=== PATIENT | female | born 1995 | race African-American/Black ===

== ENCOUNTER 2016-03-09 20:44 | Emergency (ER) | payer OTHER, SELFPAY ==
[2016-03-09] MEDS ORDERED: Dexamethasone 4 MG TAB ONE (20:56)
--- NOTE | 2016-03-09 21:21 | ERRECORD ---
[facility] EMERGENCY RECORD HPI SORE THROAT (20:55 BPIC) CHIEF COMPLAINT: Patient presents for evaluation of sore throat, Patient presents for evaluation of cough and body aches. HISTORIAN: History provided by patient. LOCATION: No localizing symptoms. QUALITY: Pain is sharp in nature. SEVERITY: Maximum severity of symptoms moderate, Currently symptoms are moderate. TIME COURSE: Gradual onset of symptoms, Symptoms are worsening. ASSOCIATED WITH: Associated with fever, No associated drooling, No associated dysphagia, No associated headache, No associated inability to take oral fluids. EXACERBATED BY: Patient's condition exacerbated by food. RELIEVED BY: Patient's condition relieved by cold fluids. ROS (20:55 BPIC) CONSTITUTIONAL: Negative constitutional review of systems. EYES: Negative eye review of systems. ENT: see hpi. CARDIOVASCULAR: Negative cardiovascular review of systems. RESPIRATORY: Negative respiratory review of systems. GI: Negative gastrointestinal review of systems. MUSCULOSKELETAL: Negative musculoskeletal review of systems. SKIN: Negative skin review of systems. PSYCHIATRIC: Negative psychiatric review of systems. NOTES: All other ROS is negative except as listed in HPI. PAST MEDICAL HISTORY MEDICAL HISTORY: Flu vaccine not up to date, Tetanus immunization up to date, Pneumococcal vaccine not up to date, Past medical history includes pulmonary disease, asthma, Past medical history includes pulmonary disease, asthma. HEART MURMUR. (20:55 SFRE) FEMALE SURGICAL HISTORY: Patient's surgical history is not relevant to the management of the case, Surgical history of tonsillectomy, Notes: 10 years ago, ADENOIDECTOMY. (20:55 SFRE) PSYCHIATRIC HISTORY: Psychiatric history includes, depression. (20:55 SFRE) SOCIAL HISTORY: Patient denies alcohol use, Patient denies drug use, Patient has no smoking history, Lives at home, with family. (20:55 SFRE) FAMILY HISTORY: Family istory is not significant, Unknown family histroy, Family history is non-contributory to this case. (20:55 SFRE) NOTES: I have reviewed and agree with the PMH/PSxH/FamHx/SocHx obtained by the nurse. (20:55 BPIC) KNOWN ALLERGIES "motrin dye" &a-1R&a+25V*p+0X*d6369L*c202B*c15G*c2P*p-0X&a-25V&a+1R Name: Kam Crowder : 1995 F20 MedRec: [id number] AcctNum: [id number] Prepared: MonMar 09, 2016 22:15 by Interface Page [address] [facility] EMERGENCY RECORD Red Dye (Unconfirmed): Reaction: Hives, Severity: Mild, Source: Patient CURRENT MEDICATIONS (20:53 SFRE) FLUoxetine: TABLET : Strength - 20 mg : ORAL Patient Dose: 20 mg Oral once a day. VITAL SIGNS (20:52 SFRE) VITAL SIGNS: BP: 114/39, Pulse: 70, Resp: 18, Temp: 98.1 (Tympanic), Pain: 10 (Dull), O2 sat: 99 on Room Air, Time: 03/09/2016 20:52. PHYSICAL EXAM (20:55 BPIC) CONSTITUTIONAL: Vital signs reviewed, Patient afebrile, Pulse normal, Blood pressure normal, Respiratory rate normal, Patient appears non toxic, Patient appears pain free, Patient alert and oriented to person, place and time. HEAD: Head exam included findings of head atraumatic, normocephalic. EYES: Eye exam included findings of eyelids normal to inspection, Pupils equally round and reactive to light, Extraocular muscles intact. ENT: mild pharyngeal erythema. NECK: Neck exam included findings of normal range of motion, Trachea midline. RESPIRATORY CHEST: Respiratory exam included findings of no respiratory distress, Breath sounds clear. CARDIOVASCULAR: Cardiovascular exam included findings of heart rate regular rate and rhythm, Heart sounds normal. NEURO: Neuro exam findings include patient oriented to person, place and time, Speech normal. PSYCHIATRIC: Psychiatric exam included findings of patient oriented to person place and time, Normal affect. MEDICATION ADMINISTRATION SUMMARY Drug Name: Decadron oral, Dose Ordered: 8 mg, Route: Oral, Status: Given, Time: 20:59 03/09/2016, Detailed record available in Medication Service section. DOCTOR NOTES (20:55 BPIC) NOTES: Patient with sorethroat and fever by history. Non-toxic appearing. DDX considered includes ashleigh-tonsillar abscess, retro-pharyngeal abscess, dental infection, merlyn's, strep throat, mono, thyroiditis. Exam is re-assuring. Will d/c to outpatient follow up with symptomatic treatment. PROBLEM LIST No recorded problems &a-1R&a+25V*p+0X*q7306N*c202B*c15G*c2P*p-0X&a-25V&a+1R Name: Kam Crowder : 1995 F20 MedRec: [id number] AcctNum: [id number] Prepared: MonMar 09, 2016 22:15 by Interface Page [address] [facility] EMERGENCY RECORD DIAGNOSIS FINAL: PRIMARY: Strep throat. (20:55 BPIC) PRIMARY: viral pharyngitis. (20:56 BPIC) PRESCRIPTION No recorded prescriptions DISPOSITION PATIENT: Disposition Type: Discharge, Disposition: *Discharge Home, Condition: Good. (20:56 BPIC) Patient left the department. (21:07 SFRE) Rdz: BPIC=MD Nissa, Prem SFRE=KIRAN Espinoza, Elaine &a-1R&a+25V*p+0X*[id number]*c202B*c15G*c2P*p-0X&a-25V&a+1R Name: Kam Crowder : 1995 F20 MedRec: [id number] AcctNum: [id number] Prepared: MonMar 09, 2016 22:15 by Interface Page 3 of 3 pMD MTDD
--- NOTE | 2016-03-09 21:25 | PICIS ---
[facility] EMERGENCY RECORD TRIAGE (MonMar 09, 2016 20:53 SFRE) TRIAGE NOTES: SORE THROAT AND BODY ACHES. (MonMar 09, 2016 20:53 SFRE) PATIENT: NAME: Kam Crowder, AGE: 20, GENDER: female, : Mon1995, TIME OF GREET: MonMar 09, 2016 20:44, PREFERRED LANGUAGE: German, ETHNICITY: Not or , FALL RISK: NO, ECODE BILLING MAP: [facility], SSN: [id number], Zip Code: [address], KG WEIGHT: 64.41, PHONE: , , , PERSON ID: [id number], PCP: MD Lloyd Olayemi. (MonMar 09, 2016 20:53 SFRE) COMPLAINT: BODY ACHES, SORE THROAT. (MonMar 09, 2016 20:53 SFRE) ADMISSION: URGENCY: 5 Fast Track, ADMISSION SOURCE: Home, TRANSPORT: Walk-in, BED: ED -04. (MonMar 09, 2016 20:53 SFRE) ASSESSMENT: Symptoms began 03/09/2016. (20:55 SFRE) PAIN: Patient complains of pain described as, dull, on a scale 0-10 patient rates pain as 10, Location GENERALIZED BODY ACHES, Pain is constant, No aggravating factors, No efforts tried to relieve symptoms. (20:55 SFRE) IMMUNIZATIONS: Flu vaccine not up to date. (20:55 SFRE) SIRS SCORING: Heart Rate 55-109 (0), Temp range 96.8-101.1 (0), respiratory rate 12-24 (0), Mental Status altered: no (0). (20:55 SFRE) TRIAGE SCREENING: Patient denies suicidal ideation, Patient denies presence of domestic violence. (20:55 SFRE) PROVIDERS: TRIAGE NURSE: Elaine Espinoza RN. (MonMar 09, 2016 20:53 SFRE) VITAL SIGNS: BP 114/39, Pulse 70, Resp 18, Temp 98.1, (Tympanic), Pain 10, (Dull), O2 Sat 99, on Room Air, Time 03/09/2016 20:52. (20:52 SFRE) PREVIOUS VISIT ALLERGIES: "motrin dye", Red Dye. (MonMar 09, 2016 20:53 SFRE) "motrin dye", Red Dye. (20:55 SFRE) KNOWN ALLERGIES "motrin dye" Red Dye (Unconfirmed): Reaction: Hives, Severity: Mild, Source: Patient CURRENT MEDICATIONS (20:53 SFRE) FLUoxetine: TABLET : Strength - 20 mg : ORAL Patient Dose: 20 mg Oral once a day. VITAL SIGNS (20:52 SFRE) VITAL SIGNS: BP: 114/39, Pulse: 70, Resp: 18, Temp: 98.1 (Tympanic), Pain: 10 (Dull), O2 sat: 99 on Room Air, Time: 03/09/2016 20:52. &a-1R&a+25V*p+0X*r3524F*c202B*c15G*c2P*p-0X&a-25V&a+1R Name: Kam Crowder : 1995 F20 MedRec: [id number] AcctNum: [id number] Prepared: MonMar 09, 2016 22:21 by Interface Page 1 of 4 pMD [facility] EMERGENCY RECORD NURSING PROCEDURE: DISCHARGE NOTE (21:05 SFRE) DISCHARGE: Patient discharged to home, ambulating without assistance, driving self, unaccompanied, Summary of Care printed/ provided, Patient requested and was provided an electronic copy of Discharge Instructions, Discharge instructions given to patient, Simple or moderate discharge teaching performed, by KIRAN RODGERS, RETURN NEEDED. INSISTED ON WORK NOTE, Above person(s) verbalized understanding of discharge instructions and follow-up care. MEDICATION ADMINISTRATION SUMMARY Drug Name: Decadron oral, Dose Ordered: 8 mg, Route: Oral, Status: Given, Time: 20:59 03/09/2016, Detailed record available in Medication Service section. MEDICATION SERVICE (20:59 BPIC) Decadron oral: Order: Decadron oral (dexamethasone) - Dose: 8 mg : Oral Schedule: Now Ordered by: Prem Azar MD Entered by: Prem Azar MD MonMar 09, 2016 20:55 , Acknowledged by: lEaine Espinoza RN MonMar 09, 2016 20:55 Documented as given by: Elaine Espinoza RN MonMar 09, 2016 20:59 Patient, Medication, Dose, Route and Time verified prior to administration. Amount given: 8MG, Site: Medication administered P.O., Correct patient, time, route, dose and medication confirmed prior to administration, Patient advised of actions and side-effects prior to administration, Allergies confirmed and medications reviewed prior to administration, Patient in position of comfort, Side rails up, Cart in lowest position, Family at bedside. HPI SORE THROAT (20:55 BPIC) CHIEF COMPLAINT: Patient presents for evaluation of sore throat, Patient presents for evaluation of cough and body aches. HISTORIAN: History provided by patient. LOCATION: No localizing symptoms. QUALITY: Pain is sharp in nature. SEVERITY: Maximum severity of symptoms moderate, Currently symptoms are moderate. TIME COURSE: Gradual onset of symptoms, Symptoms are worsening. ASSOCIATED WITH: Associated with fever, No associated drooling, No associated dysphagia, No associated headache, No associated inability to take oral fluids. EXACERBATED BY: Patient's condition exacerbated by food. RELIEVED BY: Patient's condition relieved by cold fluids. ROS (20:55 BPIC) CONSTITUTIONAL: Negative constitutional review of systems. &a-1R&a+25V*p+0X*z6750D*c202B*c15G*c2P*p-0X&a-25V&a+1R Name: Kam Crowder : 1995 F20 MedRec: [id number] AcctNum: [id number] Prepared: MonMar 09, 2016 22:21 by Interface Page 2 of 4 pMD [facility] EMERGENCY RECORD EYES: Negative eye review of systems. ENT: see hpi. CARDIOVASCULAR: Negative cardiovascular review of systems. RESPIRATORY: Negative respiratory review of systems. GI: Negative gastrointestinal review of systems. MUSCULOSKELETAL: Negative musculoskeletal review of systems. SKIN: Negative skin review of systems. PSYCHIATRIC: Negative psychiatric review of systems. NOTES: All other ROS is negative except as listed in HPI. PAST MEDICAL HISTORY MEDICAL HISTORY: Flu vaccine not up to date, Tetanus immunization up to date, Pneumococcal vaccine not up to date, Past medical history includes pulmonary disease, asthma, Past medical history includes pulmonary disease, asthma. HEART MURMUR. (20:55 SFRE) FEMALE SURGICAL HISTORY: Patient's surgical history is not relevant to the management of the case, Surgical history of tonsillectomy, Notes: 10 years ago, ADENOIDECTOMY. (20:55 SFRE) PSYCHIATRIC HISTORY: Psychiatric history includes, depression. (20:55 SFRE) SOCIAL HISTORY: Patient denies alcohol use, Patient denies drug use, Patient has no smoking history, Lives at home, with family. (20:55 SFRE) FAMILY HISTORY: Family istory is not significant, Unknown family histroy, Family history is non-contributory to this case. (20:55 SFRE) NOTES: I have reviewed and agree with the PMH/PSxH/FamHx/SocHx obtained by the nurse. (20:55 BPIC) PHYSICAL EXAM (20:55 BPIC) CONSTITUTIONAL: Vital signs reviewed, Patient afebrile, Pulse normal, Blood pressure normal, Respiratory rate normal, Patient appears non toxic, Patient appears pain free, Patient alert and oriented to person, place and time. HEAD: Head exam included findings of head atraumatic, normocephalic. EYES: Eye exam included findings of eyelids normal to inspection, Pupils equally round and reactive to light, Extraocular muscles intact. ENT: mild pharyngeal erythema. NECK: Neck exam included findings of normal range of motion, Trachea midline. RESPIRATORY CHEST: Respiratory exam included findings of no respiratory distress, Breath sounds clear. CARDIOVASCULAR: Cardiovascular exam included findings of heart rate regular rate and rhythm, Heart sounds normal. NEURO: Neuro exam findings include patient oriented to person, place and time, Speech normal. &a-1R&a+25V*p+0X*p0161N*c202B*c15G*c2P*p-0X&a-25V&a+1R Name: Kam Crowder : 1995 F20 MedRec: [id number] AcctNum: [id number] Prepared: MonMar 09, 2016 22:21 by Interface Page 3 of 4 pMD [facility] EMERGENCY RECORD PSYCHIATRIC: Psychiatric exam included findings of patient oriented to person place and time, Normal affect. EVENTS TRANSFER: Triage to Emergency Main ED -04. (MonMar 09, 2016 20:53 SFRE) Removed from Emergency Main ED -04. (21:07 SFRE) DOCTOR NOTES (20:55 BPIC) NOTES: Patient with sorethroat and fever by history. Non-toxic appearing. DDX considered includes ashleigh-tonsillar abscess, retro-pharyngeal abscess, dental infection, merlyn's, strep throat, mono, thyroiditis. Exam is re-assuring. Will d/c to outpatient follow up with symptomatic treatment. PROBLEM LIST No recorded problems DIAGNOSIS FINAL: PRIMARY: Strep throat. (20:55 BPIC) PRIMARY: viral pharyngitis. (20:56 BPIC) DISPOSITION PATIENT: Disposition Type: Discharge, Disposition: *Discharge Home, Condition: Good. (20:56 BPIC) Patient left the department. (21:07 SFRE) INSTRUCTION (21:01 BPIC) DISCHARGE: PHARYNGITIS, VIRAL. FOLLOWUP: MD Gabino, Madelyn, [facility], [address] [place] [address], . SPECIAL: Please follow up with your physician in the next 2-3 days. Return to the Emergency Room with any worsening of your symptoms or other emergent concerns. Thank you for choosing [facility] for your care today, and God Bless You!. PRESCRIPTION No recorded prescriptions IMAGING (21:05 SFRE) *DISCHARGE INSTRUCTIONS RECEIPT: Image captured from scanner. *SUPPLY CHARGE SHEET: Image captured from scanner. ADMIN DIGITAL SIGNATURE: MD Azar Bryan. (20:56 BPIC) KIRAN Espinoza, Elaine. (21:06 SFRE) MD Azar Bryan. (22:10 BPIC) Rdz: BPIC=MD Azar Bryan SFRE=KIRAN Espinoza, Elaine &a-1R&a+25V*p+0X*[id number]*c202B*c15G*c2P*p-0X&a-25V&a+1R Name: Kam Crowder : 1995 F20 MedRec: [id number] AcctNum: [id number] Prepared: MonMar 09, 2016 22:21 by Interface Page 4 of 4 pMD MTDD
== END 2016-03-09 21:06 | disposition home or self-care (01) ==
LOC: MADERS 20:44
DX: J02.0 Streptococcal pharyngitis (principal); J45.909 Unspecified asthma, uncomplicated; F32.9 Major depressive disorder, single episode, unspecified
CPT/HCPCS: 99283; J8540

== ENCOUNTER 2016-04-21 16:21 | Emergency (ER) | payer OTHER, SELFPAY | END 2016-04-21 17:18 | disposition home or self-care (01) | LOC: MADERS 16:21 | DX: B37.3 Candidiasis of vulva and vagina (principal); J45.909 Unspecified asthma, uncomplicated; Z90.89 Acquired absence of other organs | CPT/HCPCS: 99283 ==

== ENCOUNTER 2016-06-26 10:57 | Emergency (ER) | payer OTHER, SELFPAY ==
[2016-06-26 11:52] LABS: Bilirubin Negative (Negative); Blood, Urine Trace (Negative); Clarity Slightly Cloudy (Clear); Glucose, Urine (Dipstick) Negative (Negative); Leukocyte Small (Negative); Nitrite Negative (Negative); Protein, Urine (Dipstick) Negative (Neg-Trace); Specific Gravity, Urine 1.025 (1.005-1.030); Urobilinogen 0.2 mg/dL (0.2-1.0)
[2016-06-26 11:53] LABS: Bacteria/HPF 3+ HPF (None Seen); Pregnancy Test - Urine (BHCG) NEGATIVE (NEGATIVE); Pregu Control Bar Appear? YES (CONTROL BAR); Renal Epithelial 0-3 HPF (0-3); Specific Gravity 1.025 (1.002-1.036); Transitional Epithelial 0-3 HPF (0-3); WBC/HPF 21-50 HPF (0-3); Yeast-All Forms Rare HPF (None Seen)
[2016-06-26] MEDS ORDERED: Sulfameth/Trimethoprim DS 800-160mg TAB ONE (12:05)
[2016-06-26] MEDS ORDERED: Cephalexin 500 MG CAP ONE (12:24)
== END 2016-06-26 12:30 | disposition home or self-care (01) ==
LOC: MADERS 10:57
DX: L02.212 Cutaneous abscess of back [any part, except buttock and flank] (principal); N39.0 Urinary tract infection, site not specified; J45.909 Unspecified asthma, uncomplicated; F32.9 Major depressive disorder, single episode, unspecified
CPT/HCPCS: 81001; 81025; 87086; 99283

== ENCOUNTER 2019-05-19 03:22 | Emergency (ER) | payer OTHER | END 2019-05-19 04:24 | disposition home or self-care (01) | LOC: MADERS 03:22 | DX: O99.512 Diseases of the respiratory system complicating pregnancy, second trimester (principal); J06.9 Acute upper respiratory infection, unspecified; J45.909 Unspecified asthma, uncomplicated; O99.342 Other mental disorders complicating pregnancy, second trimester; F32.9 Major depressive disorder, single episode, unspecified; Z3A.16 16 weeks gestation of pregnancy | CPT/HCPCS: 99283 ==

== ENCOUNTER 2019-11-16 10:31 | Emergency (ER) | payer OTHER ==
[2019-11-16] MEDS ORDERED: Cephalexin 250 MG CAP ONE (11:10)
== END 2019-11-16 11:15 | disposition home or self-care (01) ==
LOC: MADERS 10:31
DX: O91.22 Nonpurulent mastitis associated with the puerperium (principal)
CPT/HCPCS: 99283

== ENCOUNTER 2020-06-07 13:03 | Emergency (ER) | payer OTHER ==
[2020-06-07] MEDS ORDERED: Ondansetron ODT 4 MG TAB ONE (13:42)
[2020-06-07] MEDS ORDERED: Ibuprofen 400 MG TAB ONE (13:42)
[2020-06-07] MEDS ORDERED: Acetaminophen 500 MG TAB ONE (14:46)
[2020-06-07] MEDS ORDERED: Oseltamivir 75 MG CAP ONE (14:46)
[2020-06-08 14:56] LABS: SARS-CoV-2 PCR by NAA Not Detected (NotDetected)
== END 2020-06-07 15:02 | disposition home or self-care (01) ==
LOC: MADERS 13:03
DX: J10.1 Influenza due to other identified influenza virus with other respiratory manifestations (principal); Z20.822 Contact with and (suspected) exposure to COVID-19; J45.909 Unspecified asthma, uncomplicated
CPT/HCPCS: 71045; 87081; 87430; 87635; 87804; Q0162; U0003; U0005